=== PATIENT | female | born 1990 | race Caucasian/White ===

== ENCOUNTER 2018-03-26 09:54 | Outpatient (CLI) | payer BC ==
--- NOTE | 2018-03-26 12:14 | MRI ---
MRI BRAIN WITHOUT CONTRAST: Indication: (R51) Progressive headache for one year, predominately left retroorbital. FINDINGS: The ventricular system is normal in size. There is no midline shift or acute territorial infarction. No hemorrhage, intraparenchymal susceptibility is present. There are a few foci of nonspecific signal alteration, punctate in size, involving the cerebral hemispheres bilaterally. Mild retention cyst fo rmation seen at the paranasal sinus. Skull based flow voids are patent. IMPRESSION: 1. No acute intracranial mass effect or territorial infarction. 2. A few nonspecific foci of signal alteration, punctate in size, of doubtful clinical significance. These can be seen in the setting of migraine disorder or alternatively a mild component of avascular process such as vasculitis/vasculopathy. Findings are not typical in distribution for a demyelinating process. Recommend clinical correlation. As necessary, imaging follow up may be obtained. POS: [facility]
== END 2018-03-26 09:55 | disposition home or self-care (01) ==
LOC: SCSMRI 09:54
PROVIDERS: ATTEND Family Medicine
DX: R51 Headache (principal)
CPT/HCPCS: 70551

== ENCOUNTER 2019-10-26 14:33 | Inpatient (IN) | payer BC ==
--- NOTE | 2019-10-26 14:59 | PDOC.LDHP ---
Labor and Delivery H&P Chief complaint: loss of fluid HPI: 29yo @ 34.1wk complicated by velamentous cord insertion who presents for LOF. Patient had acute rupture of membranes at 1345. Clear, odorless fluid. Small blood-tinge mucous with wiping but otherwise no vaginal bleeding. No ctx. Endorses good movement. No CP, SOB, vision changes, n/v, fever/chills, abd pain. Current gestational age (weeks): 34 (34.1) Due date: 12/06/19 Dating criteria: last menstrual period Grav: 1 Para: 0 OB History Details: primigravid Current complications: other (Maternal alpha thal carrier, FOB not carrier. NT 4.9mm with cystic hygroma on US. High risk XYY initially. Repeat testing by MFM per patient was negative and suspect false positive on initial testing. Low lying placenta, 1.6cm from OS that has resolved per patient and . Velamentous cord insertion) Abnormal US findings: Yes (low lying placenta, resolved. velamentous cord insertion) Past Medical History: anxiety, depression, migraines, GERD Current medications: pre- vitamins, other (nexium, fiorcet, PNV, Effexor, Vit C, Vit D, calcium) Allergies/Adverse Reactions: Allergies Allergy/AdvReac Type Severity Reaction Status Date / Time Sulfa (Sulfonamide Allergy Mild Rash Verified 10/26/19 15:06 Antibiotics) Social history: none - Physical Exam Abnormal vital signs: BP 144/100, 179/98, 162/97 General: NAD, other (very anxious, tearful at times) Heart: RRR Lungs: CTAB Abdomen: gravid Extremeties: no edema FHT: category 1 (accels, no deccels, baseline 150) [place] contractions every: intermittents - Vaginal Exam cm dilated: 1 Effacement: 25% (40%) Station: -2 - OB Labs Blood type: O RH: positive Antibody Screen: negative HIV: negative HEPSAg: negative 1 hour GCT: negative GBS: unknown Rubella: immune - Plan Plan: admit to L&D, GBS antibiotic prophylaxis -: 29yo @ 34.1wk complicated by velamentous cord insertion who presents for LOF. # Rupture of Membranes - 34.1wk - SROM @ 1345 on 10/25, no associated bleeding/ctx - FHT Cat 1 with accels, no deccels, moderate variability, baseline 140. Intermittent ctx - SVE /-2 - PCP, Dr. Rabago notified - Admit for induction due to SROM with cytotec 50mg PO q4h - GBS ppx with Pen G - Betamethasone given for lung maturity, first dose now and second in 24 hours - Zana consulted, apprec assistance - Desires epidural - bedside US confirms vertex presentation #Elevated BP - Patient with severe anxiety at presentation - during anxiety and tearfulness, 2 severe range BPs - no history of cHTN, preE or gHTN - will order PIH labs and cont to monitor - Hydralazine prn #Velamentous cord insertion - monitor for cord avulsion at delivery - previous low lying placenta, resolved #Abnormal genetic testing - initial testing with nuchal translucency and cystic hygroma with high risk for XYY - repeat testing with MFM demonstrated false positive - will monitor baby post delivery - rec 2 green-top heparinized blood tubes sent for Murray's syndrome testing #Anxiety/Depression - cont home meds PCP: [facility] Dispo: Admit for ROM and begin cytotec induction. Zana consulted for assistance. Desires epidural. PIH labs pending. Cont to monitor. Addendum - Attending - Attending Attestation Date/Time: 10/26/191999 I personally evaluated the patient and discussed the management with Dr. Dietrich. I agree with the History, Examination, Assessment and Plan documented above.
[2019-10-26 15:20] VITALS: BMI 30.3
[2019-10-26] MEDS ORDERED: Butorphanol Tartrate 1 MG/ML VIAL SLOW IVP PRN (16:01)
[2019-10-26] MEDS ORDERED: Promethazine HCl 25 MG/ML VIAL IM PRN (16:01)
[2019-10-26] MEDS ORDERED: Lidocaine 1% (PF) 30 ML VIAL SC PRN (16:01)
[2019-10-26] MEDS ORDERED: hydrALAZINE 20 MG/ML VIAL SLOW IVP PRN (16:01)
[2019-10-26] MEDS ORDERED: Ibuprofen 800 MG TAB PO PRN (16:01)
[2019-10-26] MEDS ORDERED: NS / Oxytocin 40 units/1000ml 1,000 ML IV PRN (16:01)
[2019-10-26] MEDS ORDERED: hydrALAZINE 20 MG/ML VIAL ONE (16:02)
[2019-10-26] MEDS ORDERED: Penicillin G Potassium 5 MILL.UNITS VIAL ONE (16:10)
[2019-10-26] MEDS ORDERED: Betamet Acet/Betamet Na Ph 30 MG/5 ML VIAL ONE (16:10)
[2019-10-26] MEDS ORDERED: Penicillin G Potassium 5 MILL.UNITS in Sodium Chloride 0.9% 100 ML IVPB SCH (16:15)
[2019-10-26] MEDS: Betamet Acet/Betamet Na Ph 30 MG/5 ML VIAL IM SCH (16:24)
[2019-10-26 16:26] LABS: Hemoglobin 12.9 g/dL (12.0-16.0); Mean Corpuscular HGB CONC 33.7 g/dL (32.0-36.0); Mean Corpuscular Hemoglobin 27.5 pg (27.0-31.0); Mean Corpuscular Volume 81.5 fL (78.0-98.0); Mean Platelet Volume 11.1 fL (7.4-10.4); Platelet Count 166 thou/uL (130-400); RBC Distribution Width 11.9 % (11.5-14.5); Red Blood Cell (RBC) Count 4.69 mill/uL (4.20-5.40); White Blood Cell (WBC) Count 10.6 thou/uL (4.8-10.8)
[2019-10-26 16:46] LABS: ALT (SGPT) 11 U/L (8-55); AST (SGOT) 16 U/L (5-34); Albumin 2.9 g/dL (3.5-5.0); Alkaline Phosphatase 211 U/L (40-110); Anion Gap 13 mmol/L (10-20); BUN (Urea Nitrogen) 15 mg/dL (7.0-18.7); Bilirubin, Total 0.2 mg/dL (0.2-1.2); Calc. Creatinine Clearance 104 mL/min (70-130); Calcium 8.7 mg/dL (7.8-10.44); Carbon Dioxide 17 mmol/L (22-29); Chloride 110 mmol/L (98-107); Estimated GFR-MDRD 81; Globulin 3.1 g/dL (2.4-3.5); Glucose 86 mg/dL (70-105); Potassium 4.5 mmol/L (3.5-5.1); Sodium 135 mmol/L (136-145)
[2019-10-26 17:04] LABS: HBSAg Index 0.18 S/CO (0-0.99); Hep B Surf Ag Non-Reactive S/CO (NonReactive)
[2019-10-26 17:10] LABS: Syphilis Antibody Nonreactive (Nonreactive); Syphilis Antibody Index 0.02 S/CO (<1.00 Non-Reactive)
[2019-10-26 18:34] LABS: Creatinine, Urine 74.96 mg/dL (47-110)
[2019-10-26] MEDS ORDERED: Calcium Gluc 4.6 MEQ/10 ML (100 MG/ML) SLOW IVP PRN (19:03)
--- NOTE | 2019-10-26 19:06 | PDOC.BPN ---
- Brief Progress Note S: Now resting comfortably, less tearful but states still anxious. Endorses good movement, no vaginal bleeding. No ctx. No SOSA, vision changes, SOB, CP , RUQ pain. O: BP 168/98 and 161/89 on most recent checks General: NAD, non-labored breathing Resp: CTAB Cardio: RRR no murmurs ABd: soft, nontender Ext: 1+ pitting edema to above ankles, worse than at admission A/P: 29yo @ 34.1wk complicated by velamentous cord insertion who presents for LOF admitted for IOL and expectant management. # Rupture of Membranes - 34.1wk - SROM @ 1345 on 10/25, no associated bleeding/ctx - FHT Cat 1 with accels, no deccels, moderate variability, baseline 140. Intermittent ctx - SVE /-2 @ 1537 - Will plan to begin induction after she eats dinner with cytotec 50mg PO q4h - GBS ppx with Pen G - Betamethasone given 1610 on 10/25, next dose at 1610 on 10/26 if not delivered by that time - Zana consulted, apprec assistance - Desires epidural - bedside US confirms vertex presentation #Severe PreE - Multiple severe range pressures since admission. Most recently 168/98 and 161/ 89 while resting comfortably - no history of cHTN, preE or gHTN - Hb, Plt, and LFTs WNL. Urine Pr/Cr 3.68 - Will start magnesium for seizure ppx - Hydralazine prn - cont to monitor closely #Velamentous cord insertion - monitor for cord avulsion at delivery - previous low lying placenta, resolved #Abnormal genetic testing, false positive - initial testing with nuchal translucency and cystic hygroma with high risk for XYY - repeat testing with MFM demonstrated false positive - will monitor baby post delivery - rec 2 green-top heparinized blood tubes sent for Dioni's syndrome testing #Anxiety/Depression - cont home meds PCP: [facility] Dispo: Begin cytotec induction. Starting Mag. Cont Pen G. Steroids given, repeat in 24 hours. Cont to monitor closely.
[2019-10-26] MEDS ORDERED: Magnesium Sulfate 20 GM/WATER 500 ML BAG IVPB SCH (19:15)
[2019-10-26] MEDS ORDERED: hydrALAZINE 20 MG/ML VIAL SLOW IVP SCH (19:30)
[2019-10-26] MEDS: Misoprostol 100 MCG TAB PO SCH ×2 (20:01→23:54)
[2019-10-26] MEDS: Penicillin G 2.5 MILL.units 2.5 MILL.UNITS in Premix Bag 1 BAG IVPB SCH ×2 (20:02→23:53)
[2019-10-26] MEDS: Acetaminophen 500 MG TAB PO PRN (23:14)
--- NOTE | 2019-10-27 01:01 | PDOC.LDPN ---
Labor & Delivery Progress Note - Subjective Subjective: comfortable, no concerns - Objective Vital signs reviewed and normal: yes Abnormal vital signs: HR 104-134, 1 elevated BP since last check at 145/92 General: NAD, resting Uterine fundus: non tender SVE: 05/23/2 FHT: category 1 (accels, no deccels, basline 130) [place] contractions every: intermittent - Assessment (1) Rupture of membranes with clear amniotic fluid Code(s): [id number] - Current Visit: Yes Status: Acute (2) Current Visit: Yes Status: Acute Qualifiers: Weeks of gestation: 34 weeks Qualified Code(s): Z3A.34 - 34 weeks gestation of Plan: continue plan of care -: 29yo @ 34.2wk complicated by velamentous cord insertion who presents for LOF admitted for IOL and expectant management. # Rupture of Membranes - 34.2wk - SROM @ 1345 on 10/25, no associated bleeding/ctx - FHT Cat 1 with accels, no deccels, moderate variability, baseline 140. Intermittent ctx - SVE /-2 @ 1537 - cytotec given @ ~2200 - SVE 05/23/2 @ 0030 - cytotec give - GBS ppx with Pen G - Betamethasone given 1610 on 10/25, next dose at 1610 on 10/26 if not delivered by that time - Zana consulted, apprec assistance - Desires epidural - bedside US confirms vertex presentation - cont to monitor with recheck in ~4 hours #Severe PreE - Multiple severe range pressures. Most recently BP elevated but not severe range. - no history of cHTN, preE or gHTN - Hb, Plt, and LFTs WNL. Urine Pr/Cr 3.68 - Cont mag, uop > 30cc/hr - Hydralazine prn - cont to monitor closely #Velamentous cord insertion - monitor for cord avulsion at delivery - previous low lying placenta, resolved #Abnormal genetic testing, false positive - initial testing with nuchal translucency and cystic hygroma with high risk for XYY - repeat testing with MFM demonstrated false positive - will monitor baby post delivery - rec 2 green-top heparinized blood tubes sent for Dioni's syndrome testing #Anxiety/Depression - cont home meds PCP: [facility] Dispo: Cont cytotec induction. Cont Mag. Cont Pen G. Steroids given, repeat in 24 hours. Cont to monitor closely.
[2019-10-27] MEDS: Penicillin G 2.5 MILL.units 2.5 MILL.UNITS in Premix Bag 1 BAG IVPB SCH ×4 (03:46→22:03)
[2019-10-27] MEDS: Misoprostol 100 MCG TAB PO SCH ×3 (03:47→23:39)
--- NOTE | 2019-10-27 04:55 | PDOC.LDPN ---
Labor & Delivery Progress Note - Subjective Subjective: comfortable, no concerns - Objective Vital signs reviewed and normal: yes General: NAD, resting Uterine fundus: non tender FHT: category 1 (accels, no deccels, baseline 130), variability present ( moderate) [place] contractions every: q2-3min initially after cytotec dose, eventually spaces out to intermittent - Assessment (1) Rupture of membranes with clear amniotic fluid Code(s): [id number] - Current Visit: Yes Status: Acute (2) Current Visit: Yes Status: Acute Qualifiers: Weeks of gestation: 34 weeks Qualified Code(s): Z3A.34 - 34 weeks gestation of Plan: continue plan of care (cytotec) -: 29yo @ 34.2wk complicated by velamentous cord insertion who presents for LOF admitted for IOL and expectant management. # Rupture of Membranes - 34.2wk - SROM out of hospital @ 1345 on 10/25, no associated bleeding/ctx - FHT Cat 1 - SVE /-2 @ 1537 - cytotec given @ ~2200 - SVE 05/23/-2 @ 0030 - cytotec give - 0400 - ctx spaced out, patient dose not feel ctx, given 3rd dose PO cytotec - GBS ppx with Pen G - Betamethasone given 1610 on 10/25, next dose at 1610 on 10/26 if not delivered by that time - Zana consulted, apprec assistance - Desires epidural - bedside US confirms vertex presentation - cont to monitor with recheck in ~4 hours, consider pit if favorable cunningham at that time #Severe PreE - Multiple severe range pressures early in admission. Most recently BP WNL. - no history of cHTN, preE or gHTN - Hb, Plt, and LFTs WNL. Urine Pr/Cr 3.68 - Cont mag, uop > 30cc/hr - Hydralazine prn - cont to monitor closely #Velamentous cord insertion - monitor for cord avulsion at delivery - previous low lying placenta, resolved #Abnormal genetic testing, false positive - initial testing with nuchal translucency and cystic hygroma with high risk for XYY - repeat testing with MFM demonstrated false positive - will monitor baby post delivery - rec 2 green-top heparinized blood tubes sent for Dioni's syndrome testing #Anxiety/Depression - cont home meds PCP: [facility] Dispo: Cont cytotec induction. Cont Mag. Cont Pen G. Steroids given, repeat in 24 hours. Cont to monitor closely.
[2019-10-27] MEDS: Ondansetron PF 4 MG/2 ML Vial IVP PRN ×2 (05:26→11:58)
[2019-10-27] MEDS: Venlafaxine HCl XR 75 MG CAP PO SCH (08:01)
[2019-10-27] MEDS: Magnesium Sulfate 20 gm/500 ml 20 GM/500 ML BAG IVPB SCH (09:56)
[2019-10-27] MEDS ORDERED: NS w/ Oxytocin 10 units 500 ML ONE (21:01)
[2019-10-27] MEDS: Acetaminophen 500 MG TAB PO PRN (23:34)
[2019-10-28] MEDS: Penicillin G 2.5 MILL.units 2.5 MILL.UNITS in Premix Bag 1 BAG IVPB SCH ×6 (02:20→22:19)
[2019-10-28] MEDS: Lactated Ringer's 1,000 ML IV SCH ×4 (02:28→22:19)
[2019-10-28] MEDS: Misoprostol 100 MCG TAB PO SCH ×5 (02:32→22:22)
[2019-10-28 07:28] LABS: Mean Corpuscular HGB CONC 35.1 g/dL (32.0-36.0); Mean Corpuscular Volume 82.5 fL (78.0-98.0); Mean Platelet Volume 10.1 fL (7.4-10.4); Platelet Count 210 thou/uL (130-400); RBC Distribution Width 12.1 % (11.5-14.5); Red Blood Cell (RBC) Count 4.16 mill/uL (4.20-5.40); White Blood Cell (WBC) Count 14.2 thou/uL (4.8-10.8)
--- NOTE | 2019-10-28 08:10 | PDOC.LDPN ---
Labor & Delivery Progress Note - Subjective Subjective: comfortable - Objective Vital signs reviewed and normal: yes General: resting Dilation: 1.5 Effacement: 50% Station: -3 FHT: category 1 [place] contractions every: irregular - Assessment (1) 34 weeks gestation of Code(s): Z3A.34 - 34 WEEKS GESTATION OF Current Visit: Yes Status : Acute (2) Severe preeclampsia Code(s): O14.10 - SEVERE PRE-ECLAMPSIA, UNSPECIFIED TRIMESTER Current Visit: Yes Status: Acute (3) Suspected chromosome anomaly affecting antepartum care of mother Code(s): O35.1XX0 - MATERNAL CARE FOR CHROMOSOMAL ABNORMALITY IN FETUS, UNSP Current Visit: Yes Status: Acute Plan: other -: HD3 S: feeling well, SOSA resolved from yesterday, has not felt any contractions during IOL, notes FM O: VS WNL on bedrest NAD A and O FHT Cat 1 Ctx: irregular to none Reflexes: brisk per PRN check SVE: 1.5/50/-2 A/P: IOL for PPROM @ 34.1 weeks. Pt received 5 doses of cycotec (3 oral and 2 vaginal) with no cervical change past 1.5cm. She has been on pitocin for approximately 12 hours with no cervical change. Today we discussed we are D3 of IOL, she has appreciated no contractions despite efforts and w PPROM. We discussed CS later today, closer to 48 hour steroid benefit [place] for failed IOL. Pt agrees w plan of care. Severe preeclampsia dx on admission by BP and elevated Pr:Cr. Mag was turned off yesterday for lethargy and level 9. This AM magnesium level WNL, reflexes more brisk, will restart at 1gm/hr. Plan to collect cord blood for genetic testing after delivery, high risk for XYY on NIPT.
[2019-10-28] MEDS ORDERED: Bicitra 30 ML UDCUP PO SCH (08:15)
[2019-10-28] MEDS ORDERED: Azithromycin 500 MG in Sodium Chloride 0.9% 250 ML 250 ML IVPB SCH (08:15)
[2019-10-28] MEDS ORDERED: CEFAZOLIN 2 GM in Premix Bag 1 BAG IVPB SCH (08:15)
[2019-10-28 09:18] LABS: Band 1 % (5-11); Lymphocytes 14 % (21-51); MDiff Complete? YES; Monocytes 7 % (0-10); Neutrophil 78 % (42-75); Platelet Morphology Comment Appears Adequate; RBC Morphology Normal
[2019-10-28] MEDS: Venlafaxine HCl XR 75 MG CAP PO SCH ×2 (13:40→17:10)
[2019-10-28] MEDS ORDERED: Oxytocin 10 UNITS/ML VIAL ONE (14:04)
[2019-10-28] MEDS ORDERED: PHENYLEPHRINE-NS 100 MCG/ML 10 ML SYRINGE ONE (14:04)
[2019-10-28] MEDS ORDERED: MORPHINE 5 MG/10 ML PF VIAL ONE (14:04)
[2019-10-28] MEDS ORDERED: Ondansetron PF 4 MG/2 ML Vial ONE (14:57)
[2019-10-28] MEDS ORDERED: Tranexamic Acid 1,000 MG/10 ML VIAL ONE (15:02)
[2019-10-28] MEDS ORDERED: diphenhydrAMINE 50 MG/ML VIAL IVP PRN (15:36)
[2019-10-28] MEDS ORDERED: Naloxone HCl 0.4 mg/ml Vial IV PRN (15:36)
[2019-10-28] MEDS ORDERED: Promethazine HCl 25 MG/ML VIAL IM PRN (15:36)
[2019-10-28] MEDS ORDERED: L&D-Morphine 4 MG/ML VIAL SLOW IVP PRN (15:36)
[2019-10-28] MEDS ORDERED: Ondansetron HCl/PF 4 MG/2 ML Vial IVP PRN (15:36)
[2019-10-28] MEDS ORDERED: Ondansetron PF 4 MG/2 ML Vial IVP PRN (15:36)
[2019-10-28] MEDS ORDERED: HYDROmorphone 2 MG/ML VIAL SLOW IVP PRN (15:36)
[2019-10-28] MEDS ORDERED: Promethazine HCl 25 MG SUPP PR PRN (15:36)
[2019-10-28] MEDS ORDERED: Ketorolac Tromethamine 30 MG/ML VIAL IVP PRN (15:36)
[2019-10-28] MEDS ORDERED: Meperidine HCl/PF 25 MG/ML VIAL SLOW IVP PRN (15:36)
[2019-10-28] MEDS ORDERED: Naloxone HCl 0.4 mg/ml Vial IVP PRN ×2 (15:36)
[2019-10-28] MEDS ORDERED: Ketorolac Tromethamine 30 MG/ML VIAL IVP SCH (15:45)
[2019-10-28] MEDS ORDERED: Communication Order-Pharmacy FS SCH (15:45)
--- NOTE | 2019-10-28 18:40 | OP ---
DATE OF PROCEDURE: 10/28/2019 PREOPERATIVE DIAGNOSES: 1. A 29-year-old female at 34 weeks and 3 days with premature rupture of the membranes at 34 weeks and 1 day. 2. Failed induction of labor. 3. High risk for XYY on NIPT. 4. Velamentous cord insert. 5. Severe preeclampsia. POSTOPERATIVE DIAGNOSES: 1. A 29-year-old female at 34 weeks and 3 days with premature rupture of the membranes at 34 weeks and 1 day. 2. Failed induction of labor. 3. High risk for XYY on NIPT. 4. Velamentous cord insert. 5. Severe preeclampsia. PROCEDURE PERFORMED: Primary low-transverse section. ASSISTANTS: 1. Nayeli Robledo MD. 2. Dr. Dietrich, Administrative Officer. ANESTHESIA: Spinal. COMPLICATIONS: None. ESTIMATED BLOOD LOSS: 500 mL. OPERATIVE FINDINGS: 1. Uterus with low-transverse hysterotomy without extension. 2. Very thin myometrial wiley. 3. Normal-appearing tubes and ovaries. 4. Hysterotomy hemostatic after closure. 5. Vigorous male with asymmetry of neck tone versus torticollis noted immediately at delivery with weight and Apgars pending at the time of delivery. 6. Placenta with velamentous cord insertion noted. 7. Surgical sites hemostatic. INDICATIONS: Ms. Samantha Ramírez presented on 10/26/2019 with diagnosis of PPROM at 34 weeks and 1 day. She was subsequently diagnosed with severe preeclampsia based on blood pressure and proteinuria criteria and placed on magnesium sulfate. Her induction of labor began with Cytotec. She received 5 doses of Cytotec over the first day and half of her induction with minimal to no cervical change and no contraction. She received approximately 12 hours of Pitocin after Cytotec with no cervical change or noted contractions. The patient was counseled for delivery of this 48-hour benefit window for failed induction. PROCEDURE IN DETAIL: The patient was taken back to the OR with IV fluids running. A Barcenas catheter that was previously placed. Epidural anesthesia was obtained and the patient was placed in dorsal supine position with a left lateral tilt. The abdomen was prepped and draped in normal fashion for section and the anesthesia was tested and found to be adequate. A Pfannenstiel skin incision was made with a scalpel. Skin incision was carried down through the subcutaneous tissue to the fascia. Once the fascia was reached, it was incised in the midline and extended superolaterally using curved Healy scissors. Mireya clamps were placed at the superior border of the fascia, which was sharply and bluntly dissected off the rectus abdominis muscles. In similar fashion, the rectus fascia was dissected off the muscles toward the pubic symphysis. The rectus muscles and peritoneum were bluntly and stretched in the midline. An Nick O retractor was placed into the peritoneal cavity for retraction, visualization, and protection of the wound. A bladder flap was created and the bladder was dissected away from the planned hysterotomy site. A low-transverse hysterotomy was made with a scalpel. Uterus was bluntly entered and stretched using a Cummins maneuver. The was delivered through the incision without difficulty. The nose and mouth were suctioned. Approximately 30 seconds of delayed cord clamping was completed and the was handed off to special care nurse in attendance. The was noted to have cry immediately at delivery. Observation of the showed some asymmetry in the tone and positioning of the head and neck, which was evaluated by the nursing staff in the switchgear repairer's presence. Cord blood was collected for genetic testing and the placenta was delivered. Uterus was then exteriorized, massaged to firm and cleared of clot and debris. On exteriorization and examination of the uterus, the myometrium was noted to be very thin throughout the entire uterus. The uterus was replaced into the abdominal cavity and Pitocin was infused out of an abundance of caution, a gram of Lysteda was given with suspicion of how the uterus would react to uterine tonic agents given the course of her induction. The hysterotomy was closed. After it was closed, it was irrigated and suctioned dry. It was inspected with no bleeding noted from the uterus or hysterotomy. The fundus was noted to be firm. The Nick O retractor was then removed from the abdominal cavity. The rectus fascia and muscle were inspected and no areas of bleeding were noted. Rectus fascia was reapproximated with PDS suture from corner to corner. Subcutaneous tissue was irrigated and dried. Any small areas of bleeding were controlled with Bovie cauterization. The skin was then reapproximated with plain gut suture. The subcutaneous layer was then approximated with plain gut suture. The skin was reapproximated and closed with 4-0 Monocryl and dressed with Dermabond dressing. The patient tolerated the procedure well. There were no complications. Job ID: [id number]
[2019-10-29] MEDS: Magnesium Sulfate 20 gm/500 ml 20 GM/500 ML BAG IVPB SCH (01:34)
--- NOTE | 2019-10-29 06:03 | OP ---
DATE OF PROCEDURE: 10/28/2019 ADDENDUM: I was present and scrubbed to assist the uncomplicated primary low-transverse with Dr. Tr Rabago. Please see her note for full details. Job ID: [id number]
[2019-10-29] MEDS: Lactated Ringer's 1,000 ML IV SCH ×2 (06:30→09:25)
[2019-10-29] MEDS ORDERED: Furosemide 20 MG TAB PO SCH (08:15)
--- NOTE | 2019-10-29 08:16 | PDOC.PP ---
Post Progress Note Post Day #: 1 Subjective: pain controlled, pumping, no concerns PO intake tolerated: yes Ambulation: yes Weight Weight 145 lb Mild range BP this AM - Physical Examination General: NAD Respiratory: non-labored breathing Abdominal: no distention Skin: CS incision dry & intact Neurological: no gross focal deficits Psychiatric: A&Ox3, normal affect Result Diagrams: 10/28/19 07:11 10/26/19 16:17 Additional Labs: Post Labs Blood Type O POSITIVE 10/26/19 16:43 Hep Bs Antigen Non-Reactive S/CO (NonReactive) 10/26/19 16:17 (1) 34 weeks gestation of Code(s): Z3A.34 - 34 WEEKS GESTATION OF Status: Acute (2) Severe preeclampsia Code(s): O14.10 - SEVERE PRE-ECLAMPSIA, UNSPECIFIED TRIMESTER Status: Acute (3) Suspected chromosome anomaly affecting antepartum care of mother Code(s): O35.1XX0 - MATERNAL CARE FOR CHROMOSOMAL ABNORMALITY IN FETUS, UNSP Status: Acute - Assessment/Plan POD1 sp 1CS for failed IOL w PPROM and severe PIH @ 34 weeks. UOP 25-40 per hour with pitting edema to knee. Lasix 20mg po x 1 ordered to see if UOP increase noted. Will decrease IVF to 25ml per hour. Plan to DC magnesium later today after 24 hr post delivery.
[2019-10-29] MEDS ORDERED: Prenatal Vitamin 1 TAB PO SCH (09:00)
[2019-10-29] MEDS: Venlafaxine HCl XR 75 MG CAP PO SCH (09:05)
[2019-10-29] MEDS ORDERED: Magnesium Sulfate 20 gm/500 ml 20 GM/500 ML BAG IVPB SCH (09:07)
[2019-10-29] MEDS ORDERED: Lanolin Ointment 7 GM TUBE TOP PRN ×2 (09:07→18:41)
[2019-10-29] MEDS ORDERED: diphenhydrAMINE 25 MG CAP PO PRN (09:07)
[2019-10-29] MEDS ORDERED: Zolpidem Tartrate 5 MG TAB PO PRN (09:07)
[2019-10-29] MEDS ORDERED: Simethicone Chewable 80 MG TAB PO PRN (09:07)
[2019-10-29] MEDS ORDERED: Adacel (T-DAP) 0.5 ML SYRINGE IM ONE (09:07)
[2019-10-29] MEDS ORDERED: HYDROcodone/Acetaminophen 5/325 mg Tablet PO PRN ×3 (09:07→18:41)
[2019-10-29] MEDS ORDERED: Ondansetron PF 4 MG/2 ML Vial IVP PRN ×2 (09:07→18:41)
[2019-10-29] MEDS ORDERED: Bisacodyl 10 MG SUPP PR PRN ×2 (09:07→18:41)
[2019-10-29] MEDS ORDERED: Calcium Gluconate 4.6 MEQ in Sodium Chloride 0.9% 100 ML IVPB PRN (09:07)
[2019-10-29] MEDS ORDERED: hydrALAZINE 20 MG/ML VIAL SLOW IVP PRN ×2 (09:07→18:41)
[2019-10-29] MEDS ORDERED: Ibuprofen 800 MG TAB PO SCH (14:00)
[2019-10-29] MEDS ORDERED: Ferrous Sulfate 325 MG TAB PO SCH (21:00)
[2019-10-29] MEDS ORDERED: Docusate Calcium (SURFAK) 240 MG CAP PO SCH (21:00)
[2019-10-29] MEDS: Ibuprofen 800 MG TAB PO SCH (21:22)
[2019-10-29] MEDS: Simethicone Chewable 80 MG TAB PO PRN (21:22)
[2019-10-29] MEDS: Docusate Calcium (SURFAK) 240 MG CAP PO SCH (21:22)
[2019-10-29] MEDS: Ferrous Sulfate 325 MG TAB PO SCH (21:23)
[2019-10-30] MEDS: Betamet Acet/Betamet Na Ph 30 MG/5 ML VIAL IM SCH (00:56)
[2019-10-30] MEDS: HYDROcodone/Acetaminophen 5/325 mg Tablet PO PRN ×4 (04:17→20:35)
[2019-10-30] MEDS: Ibuprofen 800 MG TAB PO SCH ×3 (05:57→22:47)
[2019-10-30] MEDS: Ferrous Sulfate 325 MG TAB PO SCH ×2 (07:49→22:48)
--- NOTE | 2019-10-30 08:04 | PDOC.PP ---
Post Progress Note Post Day #: 2 Subjective: off mag, tolerating regular diet, visiting baby in NICU PO intake tolerated: yes Flatus: yes Ambulation: yes Vital Signs (12 hours) Temp Pulse Resp BP Pulse Ox 10/30/19 04:14 98.4 F 76 16 138/81 96 10/30/19 00:54 81 10/29/19 23:36 98.2 F 81 16 126/76 98 10/29/19 20:11 98.4 F 85 18 134/85 98 Weight Weight 145 lb - Physical Examination General: NAD Respiratory: non-labored breathing Abdominal: no distention Skin: CS incision dry & intact Psychiatric: A&Ox3, normal affect Result Diagrams: 10/28/19 07:11 10/26/19 16:17 Additional Labs: Post Labs Blood Type O POSITIVE 10/26/19 16:43 Hep Bs Antigen Non-Reactive S/CO (NonReactive) 10/26/19 16:17 (1) 34 weeks gestation of Code(s): Z3A.34 - 34 WEEKS GESTATION OF Status: Acute (2) Severe preeclampsia Code(s): O14.10 - SEVERE PRE-ECLAMPSIA, UNSPECIFIED TRIMESTER Status: Acute (3) Suspected chromosome anomaly affecting antepartum care of mother Code(s): O35.1XX0 - MATERNAL CARE FOR CHROMOSOMAL ABNORMALITY IN FETUS, UNSP Status: Acute - Assessment/Plan POD2 sp 1CS for PPROM w failed IOL complicated by severe preecalmpsia and with 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 Continue post op care and close monitoring of BP. Likely Dc tomorrow.
[2019-10-30] MEDS: Docusate Calcium (SURFAK) 240 MG CAP PO SCH ×2 (08:58→22:47)
[2019-10-30] MEDS: Prenatal Vitamin 1 TAB PO SCH (08:59)
[2019-10-31] MEDS: HYDROcodone/Acetaminophen 5/325 mg Tablet PO PRN ×3 (04:52→17:32)
[2019-10-31] MEDS: Ibuprofen 800 MG TAB PO SCH ×3 (04:53→22:07)
[2019-10-31] MEDS: Docusate Calcium (SURFAK) 240 MG CAP PO SCH ×2 (08:25→22:07)
[2019-10-31] MEDS: Ferrous Sulfate 325 MG TAB PO SCH ×2 (08:26→22:01)
[2019-10-31] MEDS: Prenatal Vitamin 1 TAB PO SCH (08:27)
[2019-10-31] MEDS ORDERED: Sodium Chloride 0.9% 10 ML ONE (08:32)
--- NOTE | 2019-10-31 08:54 | PDOC.PP ---
Post Progress Note Post Day #: 3 Subjective: doing well, feels well, no PIH sx despite increase in BP the last 24 hours, voiding a significant amount, pain controlled, pumping PO intake tolerated: yes Flatus: yes Ambulation: yes Vital Signs (12 hours) Temp Pulse Resp BP Pulse Ox 10/31/19 08:33 83 10/31/19 08:27 83 168/87 H 10/31/19 07:25 98.9 F 78 20 180/94 H 98 10/31/19 05:05 138/81 10/31/19 04:35 98.9 F 78 16 159/89 H 98 10/31/19 00:30 98.7 F 66 17 149/84 H Weight Weight 145 lb - Physical Examination General: NAD Respiratory: non-labored breathing Abdominal: no distention Skin: CS incision dry & intact Neurological: no gross focal deficits Psychiatric: A&Ox3, normal affect Result Diagrams: 10/28/19 07:11 10/26/19 16:17 Additional Labs: Post Labs Blood Type O POSITIVE 10/26/19 16:43 Hep Bs Antigen Non-Reactive S/CO (NonReactive) 10/26/19 16:17 (1) 34 weeks gestation of Code(s): Z3A.34 - 34 WEEKS GESTATION OF Status: Acute (2) Severe preeclampsia Code(s): O14.10 - SEVERE PRE-ECLAMPSIA, UNSPECIFIED TRIMESTER Status: Acute (3) Suspected chromosome anomaly affecting antepartum care of mother Code(s): O35.1XX0 - MATERNAL CARE FOR CHROMOSOMAL ABNORMALITY IN FETUS, UNSP Status: Acute - Assessment/Plan POD3 sp 1CS for PPROM/failed IOL complicated by severe PIH. BP increase over the last 12-24 hours. Will start Procardia XL 30mg this AM, possible DC tomorrow.
[2019-10-31] MEDS ORDERED: NIFEdipine XL 30 MG TAB PO SCH (09:00)
[2019-10-31] MEDS: Simethicone Chewable 80 MG TAB PO PRN (22:07)
[2019-10-31] MEDS ORDERED: Labetalol 100 MG TAB PO SCH (23:00)
[2019-11-01] MEDS: Ibuprofen 800 MG TAB PO SCH (05:27)
[2019-11-01 07:41] VITALS: BP 134/74; TEMP 99
--- NOTE | 2019-11-01 08:09 | PDOC.PP ---
Post Progress Note Post Day #: 4 Subjective: Feels better but gets teary eyed frequently. Is on effexor. Discussed normal to feel this way at first but should start getting better after the week end. No PIH sxs. Vital Signs (12 hours) Temp Pulse Resp BP Pulse Ox 11/01/19 07:37 99.0 F 59 L 20 134/74 96 11/01/19 04:08 98.8 F 97 16 124/75 98 11/01/19 00:03 99.2 F 106 H 16 156/87 H 100 10/31/19 23:07 94 10/31/19 22:19 159/98 H 10/31/19 21:54 98.6 F 94 16 165/92 H 100 Weight Weight 145 lb - Physical Examination Abdominal: no distention, appropriately TTP Skin: CS incision dry & intact Result Diagrams: 10/28/19 07:11 10/26/19 16:17 Additional Labs: Post Labs Blood Type O POSITIVE 10/26/19 16:43 Hep Bs Antigen Non-Reactive S/CO (NonReactive) 10/26/19 16:17 - Assessment/Plan POD #4... Blood pressures improved on procardia 60 mg xl. D/c to [facility] . rx called in by Dr Rabago...Instructed to call for increased emotional lability...BP check and f/u early next week.
[2019-11-01] MEDS: Docusate Calcium (SURFAK) 240 MG CAP PO SCH (08:49)
[2019-11-01] MEDS: Prenatal Vitamin 1 TAB PO SCH (08:51)
[2019-11-01] MEDS ORDERED: Labetalol 100 MG TAB PO SCH (09:00)
[2019-11-01] MEDS ORDERED: NIFEdipine XL 60 MG TAB PO SCH (09:00)
[2019-11-01] MEDS: Ferrous Sulfate 325 MG TAB PO SCH (09:05)
== END 2019-11-01 14:10 | disposition home or self-care (01) | DRG 788 ==
LOC: L&D/OP 14:33 → L&D 16:21 → 3SE 10-29 20:26 → 3SW 10-31 17:48
PROVIDERS: ADMIT Obstetrics & Gynecology; ATTEND Obstetrics & Gynecology
PROC: 10D00Z1 Extraction of Products of Conception, Low, Open Approach (ICD-10-PCS; principal; 2019-10-28)
DX: O42.913 Preterm premature rupture of membranes, unspecified as to length of time between rupture and onset of labor, third trimester (principal); O43.123 Velamentous insertion of umbilical cord, third trimester; Z3A.34 34 weeks gestation of pregnancy; Z37.0 Single live birth; O99.344 Other mental disorders complicating childbirth; F41.9 Anxiety disorder, unspecified; F32.9 Major depressive disorder, single episode, unspecified; O14.14 Severe pre-eclampsia complicating childbirth; O35.1XX0 Maternal care for (suspected) chromosomal abnormality in fetus, not applicable or unspecified; O34.03 Maternal care for unspecified congenital malformation of uterus, third trimester; O66.3 Obstructed labor due to other abnormalities of fetus; Q51.818 Other congenital malformations of uterus
CPT/HCPCS: 36415; 51702; 80053; 82570; 83735; 84156; 85007; 85027; 86780; 86850; 86900; 86901; 87340; 88307; 99285; J0360; J0456; J0690; J0702; J2274; J2310; J2405; J2540; J2550; J2590; J3475; J3490; J7050